=== PATIENT | female | born 1970 ===

== ENCOUNTER 2021-07-17 10:45 | Inpatient (IN) | payer OTHER ==
[~2021-07-17] VITALS: Ht 162.6 cm; Wt 90.7 kg
[2021-07-17] MEDS ORDERED: ENALAPRIL MALEA10 MG PO (13:43)
[2021-07-17] MEDS ORDERED: TENORMIN25 MG PO (13:43)
[2021-07-17] MEDS ORDERED: CYMBALTA PO (13:44)
[2021-07-17] MEDS ORDERED: ADULT ASPIRIN81 MG PO (13:44)
[2021-07-20] MEDS ORDERED: DICLOFENAC SOD100 MG (16:46)
[2021-07-20] MEDS ORDERED: DULOXETINE HCL30 MG (16:46)
[2021-07-20] MEDS ORDERED: LANSOPRAZOLE30 MG (16:46)
== END 2021-07-23 14:27 | disposition home or self-care (01) | DRG 742 ==
LOC: O/R 07-20 06:40 → SURG-SUITE 07-20 06:40 → SURH 07-20 10:45 → SURG-SUITE 07-20 20:16
PROVIDERS: Colon & Rectal Surgery; ADMIT Obstetrics & Gynecology Gynecologic Oncology; ATTEND Obstetrics & Gynecology Gynecologic Oncology
PROC: 0UT20ZZ Resection of Bilateral Ovaries, Open Approach (ICD-10-PCS; 2021-07-20)
PROC: 0UT70ZZ Resection of Bilateral Fallopian Tubes, Open Approach (ICD-10-PCS; 2021-07-20)
PROC: 07BC0ZZ Excision of Pelvis Lymphatic, Open Approach (ICD-10-PCS; 2021-07-20)
PROC: 0DTP0ZZ Resection of Rectum, Open Approach (ICD-10-PCS; 2021-07-20)
PROC: 0DBN0ZZ Excision of Sigmoid Colon, Open Approach (ICD-10-PCS; 2021-07-20)
PROC: 0UT90ZZ Resection of Uterus, Open Approach (ICD-10-PCS; principal; 2021-07-20 13:00)
PROC: 0UJD4ZZ Inspection of Uterus and Cervix, Percutaneous Endoscopic Approach (ICD-10-PCS; 2021-07-20 13:00)
DX: D25.0 Submucous leiomyoma of uterus (principal); K65.8 Other peritonitis; K56.50 Intestinal adhesions [bands], unspecified as to partial versus complete obstruction; K56.690 Other partial intestinal obstruction; D25.1 Intramural leiomyoma of uterus; N80.0 Endometriosis of uterus; N99.4 Postprocedural pelvic peritoneal adhesions; N73.6 Female pelvic peritoneal adhesions (postinfective); R19.07 Generalized intra-abdominal and pelvic swelling, mass and lump; R97.0 Elevated carcinoembryonic antigen [CEA]; R97.1 Elevated cancer antigen 125 [CA 125]; I87.2 Venous insufficiency (chronic) (peripheral); I10 Essential (primary) hypertension; Z53.31 Laparoscopic surgical procedure converted to open procedure